=== PATIENT | female | born 1945 ===

== ENCOUNTER 2022-01-31 13:36 | Day surgery (SDC) | payer MEDICARE, OTHER ==
[2022-01-30 11:08] VITALS: BMI 40.0
[2022-01-31 13:56] VITALS: TEMP 99
[2022-01-31 14:00] LABS: Glucose,Whole Blood 131 mg/dL (75-99)
[2022-01-31] MEDS ORDERED: LACTATED RINGERS 1,000 ML IV ONE (14:01)
[2022-01-31] MEDS ORDERED: MIDAZOLAM 2 MG/2 ML VIAL ONE (14:33)
[2022-01-31] MEDS ORDERED: fentaNYL (PF) 50 MCG/ML 2 ML AMP ONE (14:33)
[2022-01-31] MEDS ORDERED: ROPIVACAINE 5MG/ML 20ML VIAL ONE (14:33)
[2022-01-31] MEDS ORDERED: methylPREDNISolone ACETATE 40 MG/ML 1 ML VIAL ONE (14:33)
--- NOTE | 2022-01-31 15:01 | P.PAINCN ---
History of Present Illness - Reason for Consult Consult date: 01/31/22 - History of Present Illness This is 76 years old female, a chronic history of severe left lower extremity pain, pain started more than 6 months ago, she denies any initiating event, she reported that the pain radiates from the left hip area towards the left lower extremity at the lateral aspect of the left thigh, pain increases with activity, so patient complaining of severe left knee pain which is constant and increases with any activity, patient had the left total knee arthroplasty done more than 2 years ago and she was evaluated by orthopedic surgeon regarding her left knee pain and he recommended no surgical interventions, patient denies any motor or sensory deficit she denies any fever or night sweats, patient had the left side genicular nerve block done at different pain clinic and she had good pain relief for 3 months, patient denies any change in the bowel movement or urination Past Medical History Past Medical History: Asthma, Diabetes Mellitus, Hyperlipidemia, Osteoarthritis (OA) Additional Past Medical History / Comment(s): NIDDM type 2 History of Any Multi-Drug Resistant Organisms: None Reported Past Surgical History: Joint Replacement Additional Past Surgical History / Comment(s): EGD, luana total knees Past Anesthesia/Blood Transfusion Reactions: No Reported Reaction Smoking Status: Never smoker - Past Family History Mother Family Medical History: No Reported History Medications and Allergies Home Medications Medication Instructions Recorded Confirmed Type Aspirin 81 mg PO DAILY 01/30/22 01/31/22 History Atorvastatin [Lipitor] 20 mg PO DAILY 01/30/22 01/31/22 History Cholecalciferol [Vitamin D3 (25 50 mcg PO DAILY 01/30/22 01/31/22 History Mcg = 1000 Iu)] Cyanocobalamin (Vitamin B-12) 1,000 mcg PO DAILY 01/30/22 01/31/22 History [Vitamin B-12] DULoxetine HCL [Cymbalta] 60 mg PO HS 01/30/22 01/31/22 History Pantoprazole [Protonix] 40 mg PO DAILY 01/30/22 01/31/22 History Pioglitazone [Actos] 30 mg PO DAILY 01/30/22 01/31/22 History metFORMIN HCL [Glucophage] 1,000 mg PO BID 01/30/22 01/31/22 History oxyCODONE-APAP 10-325MG [Percocet 0.5 tab PO DAILY PRN 01/30/22 01/31/22 History 10-325 mg] sitaGLIPtin [Januvia] 100 mg PO DAILY 01/30/22 01/31/22 History Metoprolol Succinate [Toprol XL] 50 mg PO DAILY 01/31/22 01/31/22 History Allergies Allergy/AdvReac Type Severity Reaction Status Date / Time No Known Allergies Allergy Verified 01/31/22 13:53 Physical Exam Vitals: Vital Signs Temp Pulse Resp BP Pulse Ox 01/31/22 13:55 99 F 99 18 184/86 97 Intake and Output 01/30/22 01/31/22 01/31/22 22:59 06:59 14:59 Intake Total 50 Balance 50 Intake: IV 50 Other: Weight 88.2 kg Physical Examinations : -Constitutiona : Cooperative , not in acute distress . -HEENT : nech : supple , no Lymphadenopathy , normal thyroid size . : eyes : no ptosis , no icterus, no photophobia . - neurologic : Cranial nerve II to XII intact , no focal neurological deffecit . -psychatric : alert , oriented X 3 , appropriate affect , intact judgment and insight . -Lymphatic : no Lymphadenopathy . - musculoskeltal : Lumber spine moter stegnth lower extremities ,thigh and legs 5/5 Right side , 5/5 Left side Flexion and extension of the left knee associated with some pain, no swelling no erythema Severe tenderness over the left trochanteric bursa Results Labs: Abnormal Lab Results - Last 24 Hours (Table) 01/31/22 Range/Units 13:59 POC Glucose (mg/dL) 131 H (75-99) mg/dL Assessment and Plan Plan: Assessment and plan=1-left knee arthralgia, left genicular nerve neuralgia. 2-left trochanteric bursitis. Patient could benefit from left trochanteric bu rsa steroid injection under fluoroscopy guidance .and she could benefit from left genicular nerve block under fluoroscopy guidance. Time with Patient: Less than 30 PQRS Measure Charge Sheet - Pain Location Left Knee Non-Pharmacological Interventions: Darkened Room, Emotional/Spiritual Support PQRS Narrative: Blood Pressure [Supine] 184/86 Pain Scale Used [Left Knee] Numeric (1 - 10) Home Medications: Ambulatory Orders Aspirin 81 mg PO DAILY 01/30/22 Atorvastatin [Lipitor] 20 mg PO DAILY 01/30/22 Cholecalciferol [Vitamin D3 (25 Mcg = 1000 Iu)] 50 mcg PO DAILY 01/30/22 Cyanocobalamin (Vitamin B-12) [Vitamin B-12] 1,000 mcg PO DAILY 01/30/22 DULoxetine HCL [Cymbalta] 60 mg PO HS 01/30/22 Pantoprazole [Protonix] 40 mg PO DAILY 01/30/22 Pioglitazone [Actos] 30 mg PO DAILY 01/30/22 metFORMIN HCL [Glucophage] 1,000 mg PO BID 01/30/22 oxyCODONE-APAP 10-325MG [Percocet 10-325 mg] 0.5 tab PO DAILY PRN 01/30/22 sitaGLIPtin [Januvia] 100 mg PO DAILY 01/30/22 Metoprolol Succinate [Toprol XL] 50 mg PO DAILY 01/31/22
[2022-01-31] MEDS ORDERED: IV FLUID CONTINUATION 1,000 ML IV ONE ×2 (15:05)
--- NOTE | 2022-01-31 15:09 | P.PCN ---
Date of Procedure: 01/31/22 Procedure(s) Performed: Operation= 1- Left genicular nerve block under fluoroscopy guidance.(Fluoroscopy images available in radiology department ) 2-Left trochanteric bursa steroid injection under fluoroscopy guidance. Preoperative diagnoses=1- genicular neuralgia. 2-persistent knee pain after total knee replacement. 3-left trochanteric bursitis. Postoperative diagnoses= same as preop. Condition= stable. Complications=none. Anesthesia= IV sedation with Versed 2 mg and fentanyl 100 g, and local infiltration with lidocaine 1% 3 mL. Description of the procedure= risk and benefit from the procedure discussed with the patient and he agreed with the preceding including but not limited to risk of infection and bleeding not complete pain relief and ALLERGIC reaction to the medication, patient taken to the operating room placed in supine position or standard monitors applied to the patient then after induction of anesthesia, the area prepped with chlorhexidine X3, then under fluoroscopy guidance and after using lidocaine 1% for skin and subcutaneous tissue infiltrations using 22-gauge Quincke-type spinal needle first needle advanced and placed at the superior medial epicondyle of the femur and the needle tip was in direct contact with the periosteum then 2 ML of ropivacaine 0.5% mixed with 10 mg of Depo-Medrol injected after negative aspiration, there was no paresthesia during the inj ection, then another 22 gauge spinal needle advanced at the superior lateral epicondyle of the femur, and the needle was in direct contact with the periosteum of the lateral epicondyle, then after negative aspiration for heme, and there was no paresthesia during the injection total of 2 ML of ropivacaine 0.5% mixed with 10 mg of Depo-Medrol injected after negative aspiration, and then another needle advanced and placed at the distal medial epicondyle of the tibia ,and the needle tip was placed at the direct contact on the periosteum of the medial epicondyle of the tibia, and then after negative aspiration for heme and there was no paresthesia during the injection 2 ML of ropivacaine 0.5% mixed with 10 mg of Depo-Medrol injected after negative aspiration . Then after that, the left trochanteric bursa steroid injection done, under sterile technique, after the left hip area prepped ,with chlorhexidine 3, then local infiltration of the skin and subcu anesthesia with lidocaine 1% 3 mL, then 22-gauge Quincke-type spinal needle advanced slowly under fluoroscopy ,and placed in the left trochanter bursa, after needle placement confirmed, then 6 mL of ropivacaine 0.5% mixed with 30 mg of Depo-Medrol injected in the left trochanter bursa, after negative aspiration ,patient tolerated the procedure well ,without any complications, and she will follow up in the pain clinic in a few weeks
[2022-01-31 15:49] VITALS: BP 133/82; PULSE 78; RESP 20
--- NOTE | 2022-01-31 15:54 | FL ---
EXAMINATION TYPE: FL guided pain mgmt statistic DATE OF EXAM: 01/31/2022 HISTORY: Fluoroscopy time 2 seconds of fluoroscopy provided. IMPRESSION: 1. Fluoroscopy time.
== END 2022-01-31 15:45 | disposition home or self-care (01) ==
LOC: PNWHC3 13:36 → EDSTATUS 13:45 → PNWHC3 15:45
PROVIDERS: ATTEND Specialist
DX: M25.562 Pain in left knee (principal); M70.62 Trochanteric bursitis, left hip; J45.909 Unspecified asthma, uncomplicated; E11.9 Type 2 diabetes mellitus without complications; E78.5 Hyperlipidemia, unspecified; M19.90 Unspecified osteoarthritis, unspecified site; Z96.653 Presence of artificial knee joint, bilateral; Z79.82 Long term (current) use of aspirin; Z79.899 Other long term (current) drug therapy; Z79.84 Long term (current) use of oral hypoglycemic drugs
CPT/HCPCS: 20610; 64454; J2250; J1030; J3010; J2795; 99152